=== PATIENT | male | born 1970 | race Caucasian/White ===

== ENCOUNTER 2024-07-06 09:14 | Day surgery (SDC) | payer OTHER ==
[~2024-07-06] VITALS: Ht 190.5 cm; Wt 115.7 kg
[~2024-07-06 09:14] MED LIST: Lactated Ringer's 1,000 ML IV ONE; propofoL 50 ML IV ONE
[2024-07-06] MEDS ORDERED: B COMPLEX FORM0.4 MG (09:29)
[2024-07-06] MEDS ORDERED: ALBU90OI (09:29)
[2024-07-06] MEDS ORDERED: FLUT1DIS5 (09:30)
[2024-07-06] MEDS ORDERED: Vitamin D1000 UNI1 (09:30)
[2024-07-06] MEDS ORDERED: ESZO2 (09:30)
[2024-07-06] MEDS ORDERED: Flonase 0.05% N16 GM (09:30)
[2024-07-06] MEDS ORDERED: Lisinopril2.5 MG (09:31)
[2024-07-06] MEDS ORDERED: MONT10T (09:31)
[2024-07-06] MEDS ORDERED: LEVSOD75 (09:31)
[2024-07-06] MEDS ORDERED: Acerola C500 MG (09:32)
[2024-07-06] MEDS ORDERED: Lactated Ringer's 1,000 ML IV ONE (10:10)
[2024-07-06] MEDS ORDERED: propofoL 50 ML IV ONE (11:14)
== END 2024-07-06 11:40 | disposition home or self-care (01) ==
LOC: ORSCSDS 09:14
PROVIDERS: Surgery
PROC: 0DBL8ZX Excision of Transverse Colon, Via Natural or Artificial Opening Endoscopic, Diagnostic (ICD-10-PCS; principal; 2024-07-06 10:15)
PROC: 0DBK8ZX Excision of Ascending Colon, Via Natural or Artificial Opening Endoscopic, Diagnostic (ICD-10-PCS; principal; 2024-07-06 10:15)
PROC: 0DBP8ZX Excision of Rectum, Via Natural or Artificial Opening Endoscopic, Diagnostic (ICD-10-PCS; principal; 2024-07-06 10:15)
PROC: 0DBN8ZX Excision of Sigmoid Colon, Via Natural or Artificial Opening Endoscopic, Diagnostic (ICD-10-PCS; principal; 2024-07-06 10:15)
DX: Z12.11 Encounter for screening for malignant neoplasm of colon (principal); D12.5 Benign neoplasm of sigmoid colon; K63.5 Polyp of colon; K62.1 Rectal polyp; J45.909 Unspecified asthma, uncomplicated; Z79.899 Other long term (current) drug therapy
CPT/HCPCS: 88305; J2704; J7120